=== PATIENT | male | born 1965 | race Caucasian/White ===

== ENCOUNTER 2017-12-20 18:19 | Emergency (ER) | payer SELFPAY ==
[2017-12-20 18:20] VITALS: BP 156/98; PULSE 112; RESP 14; TEMP 37.1; O2SAT 94
[2017-12-20 18:46] VITALS: O2SAT 95
[2017-12-20 18:47] VITALS: BP 151/97; PULSE 105; PULSE 106; RESP 14; O2SAT 94
[2017-12-20 18:50] VITALS: PULSE 109; RESP 26; O2SAT 94
--- NOTE | 2017-12-20 18:55 | W.ED.GENAD ---
Discharge Plan Discharge Details Chief Complaint: Allergic Clinical Impression: Bee sting Reason For Visit: bee sting Primary Care Provider: Carola Jain ED Provider: Koffi Chase Disposition Patient Disposition: HOME Condition: Stable Home Meds and New Rx's Prescriptions: New epinephrine 0.3 mg/0.3 mL auto-injector 0.3 mg IM ONCE Qty: 1 RF: 0 prednisone 20 mg tablet 60 mg PO DAILY 4 Days Qty: 12 RF: 0 Continue meloxicam 7.5 MG tablet 15 mg PO DAILY RF: 0 sumatriptan succinate [Imitrex] 50 MG tablet 50 mg PO DAILY RF: 0 simvastatin 40 MG tablet 40 mg PO DAILY RF: 0 epinephrine 0.3 MG/SYR auto-injector 0.3 mg IJ PRN PRNRF: 0 cholecalciferol (vitamin D3) [Vitamin D3] 2,000 UNIT capsule 2,000 unit PO DAILY RF: 0 Discharge Instructions Additional Instructions: IF you start to have a rash with difficulty breathing, throat swelling, severe abdominal pain or persistent vomit return to the emergency department after using your epi pen IF you have itching you can take over the counter benadryl, follow dosing instructions on packaging Discharge Data Discharge Physician: Koffi Chase Medical Decision Making MDM Narrative Medical decision making narrative: PT here who states 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 HE denies any respiratory or gi symptoms and other than mild discomfort where he was stung is asymptomatic. Do not feel epi indicated, will start steroids and monitor pt remains without symptoms. Will start short course of steroids and he is not sure if he has epi pen at home or not so will represcribe this for him. Return precautions given Differential Diagnosis allergic reaction, bee sting HPI - General Adult General Mode of arrival: ambulatory. Date/Time Provider Initiated Documentation: 12/20/17 18:52. Limitations to Documentation: no limitations. Information obtained by: patient. History of Present Illness 51 year old M presents to the emergency department with the chief complaint of stung by yellow jacket in left calf, described as mild, with intensity rated at 2. Quality is described as aching, and is localized to the lower extremity. Patient reports no radiation. Patient started experiencing this hour(s) (3) and it has been constant. No relieving factors improve symptom(s), No exacerbating factors reported . Patient notes no other symptoms.. Patient did receive the following treatments prior to arrival, none Related Data Home Medications Medication Instructions Recorded Confirmed cholecalciferol (vitamin D3) 2,000 unit PO DAILY 03/26/15 12/20/17 [Vitamin D3] epinephrine 0.3 mg IJ PRN PRN 03/26/15 04/24/17 simvastatin 40 mg PO DAILY 03/26/15 12/20/17 sumatriptan succinate [Imitrex] 50 mg PO DAILY 03/26/15 12/20/17 meloxicam 15 mg PO DAILY tab-cap 04/24/15 12/20/17 Previous Rx's Medication Instructions Recorded epinephrine 0.3 mg IM ONCE #1 each 12/20/17 prednisone 60 mg PO DAILY 4 Days #12 tab 12/20/17 Allergies Allergy/AdvReac Type Severity Reaction Status Date / Time sesame seed Allergy Severe Hives,BREATHING Unverified 12/20/17 19:00 PROBLEMS venom-honey bee Allergy Unverified 12/20/17 19:00 [bee venom (honey bee)] TERIYAKI SAUCE Allergy Hives Uncoded 12/20/17 19:00 General Stated Complaint: Allergic BART: 2 Review of Systems Review of Systems All systems reviewed & are unremarkable except as noted in HPI and below Constitutional Denies chills, Denies fever(s) and Denies weakness Eyes Patient Denies loss of vision ENT Denies change in voice Cardiovascular Denies chest pain and Denies dyspnea Respiratory Denies dyspnea Gastrointestinal Denies abdominal pain, Denies nausea and Denies vomiting Genitourinary Denies dysuria Musculoskeletal Denies joint swelling Integumentary/Breasts Denies rash Neurologic Denies loss of vision and Denies weakness Psychiatric Denies depression Endocrine Denies cold intolerance and Denies heat intolerance Allergic/Immunologic Denies urticaria PFSH Medical History Hyperlipidemia Migraine Social History Smoking/Tobacco Use Status: Former Tobacco Use Exam Const General: no acute distress Orientation: alert HENMT Head: normal to inspection Ears: external ears normal General nose exam: external nose normal Mouth: moist mucous membranes Eyes General: appearance normal, both eyes and all related structures Neck Neck: normal visual inspection Resp Effort & Inspection: normal respiratory effort and able to speak in complete sentences Cardio Rate: regular rate Skin General skin exam: no rashes or lesions noted Neuro General: alert and oriented x3 Extrem General: other (2cm erythema posterior left calf where he was stung by bee, no other rashes) Psych Mental Status: mental status grossly normal Course Vital Signs Temperature 37.1 C 12/20/17 18:20 Pulse 112 H 12/20/17 18:20 Respiratory Rate 14 12/20/17 18:20 Blood Pressure 156/98 H 12/20/17 18:20 Pulse Oximetry 94 L 12/20/17 18:20 Temperature 37.1 C 12/20/17 18:20 Pulse 112 H 12/20/17 18:20 Respiratory Rate 14 12/20/17 18:20 Blood Pressure 156/98 H 12/20/17 18:20 Pulse Oximetry 94 L 12/20/17 18:20
[2017-12-20] MEDS: predniSONE 20 MG TAB 60 MG PO (18:58)
--- NOTE | 2017-12-20 18:59 | ED.GENADUL_ITS ---
Discharge Plan Discharge Details Chief Complaint: Allergic Clinical Impression: Bee sting Reason For Visit: bee sting Primary Care Provider: Carola Jain ED Provider: Kofif Chase Disposition Patient Disposition: HOME Condition: Stable Home Meds and New Rx's Prescriptions: New epinephrine 0.3 mg/0.3 mL auto-injector 0.3 mg IM ONCE Qty: 1 RF: 0 prednisone 20 mg tablet 60 mg PO DAILY 4 Days Qty: 12 RF: 0 Continue meloxicam 7.5 MG tablet 15 mg PO DAILY RF: 0 sumatriptan succinate [Imitrex] 50 MG tablet 50 mg PO DAILY RF: 0 simvastatin 40 MG tablet 40 mg PO DAILY RF: 0 epinephrine 0.3 MG/SYR auto-injector 0.3 mg IJ PRN PRNRF: 0 cholecalciferol (vitamin D3) [Vitamin D3] 2,000 UNIT capsule 2,000 unit PO DAILY RF: 0 Discharge Instructions Additional Instructions: IF you start to have a rash with difficulty breathing, throat swelling, severe abdominal pain or persistent vomit return to the emergency department after using your epi pen IF you have itching you can take over the counter benadryl, follow dosing instructions on packaging Discharge Data Discharge Physician: Koffi Chase Medical Decision Making MDM Narrative Medical decision making narrative: PT here who states 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 HE denies any respiratory or gi symptoms and other than mild discomfort where he was stung is asymptomatic. Do not feel epi indicated, will start steroids and monitor pt remains without symptoms. Will start short course of steroids and he is not sure if he has epi pen at home or not so will represcribe this for him. Return precautions given Differential Diagnosis allergic reaction, bee sting HPI - General Adult General Mode of arrival: ambulatory . Date/Time Provider Initiated Documentation: 12/20/17 18:52 . Limitations to Documentation: no limitations . Information obtained by: patient . History of Present Illness 51 year old M presents to the emergency department with the chief complaint of stung by yellow jacket in left calf, described as mild, with intensity rated at 2. Quality is described as aching, and is localized to the lower extremity. Patient reports no radiation. Patient started experiencing this hour(s) (3) and it has been constant. No relieving factors improve symptom(s ), No exacerbating factors reported . Patient notes no other symptoms.. Patient did receive the following treatments prior to arrival, none Related Data Home Medications Medication Instructions Recorded Confirmed cholecalciferol (vitamin D3) 2,000 unit PO DAILY 03/26/15 12/20/17 [Vitamin D3] epinephrine 0.3 mg IJ PRN PRN 03/26/15 04/24/17 simvastatin 40 mg PO DAILY 03/26/15 12/20/17 sumatriptan succinate [Imitrex] 50 mg PO DAILY 03/26/15 12/20/17 meloxicam 15 mg PO DAILY tab-cap 04/24/15 12/20/17 Previous Rx's Medication Instructions Recorded epinephrine 0.3 mg IM ONCE #1 each 12/20/17 prednisone 60 mg PO DAILY 4 Days #12 tab 12/20/17 Allergies Allergy/AdvReac Type Severity Reaction Status Date / Time sesame seed Allergy Severe Hives,BREATHING Unverified 12/20/17 19:00 PROBLEMS venom-honey bee Allergy Unverified 12/20/17 19:00 [bee venom (honey bee)] TERIYAKI SAUCE Allergy Hives Uncoded 12/20/17 19:00 General Stated Complaint: Allergic BART: 2 Review of Systems Review of Systems All systems reviewed & are unremarkable except as noted in HPI and below Constitutional Denies chills, Denies fever(s) and Denies weakness Eyes Patient Denies loss of vision ENT Denies change in voice Cardiovascular Denies chest pain and Denies dyspnea Respiratory Denies dyspnea Gastrointestinal Denies abdominal pain, Denies nausea and Denies vomiting Genitourinary Denies dysuria Musculoskeletal Denies joint swelling Integumentary/Breasts Denies rash Neurologic Denies loss of vision and Denies weakness Psychiatric Denies depression Endocrine Denies cold intolerance and Denies heat intolerance Allergic/Immunologic Denies urticaria PFSH Medical History Hyperlipidemia Migraine Social History Smoking/Tobacco Use Status: Former Tobacco Use Exam Const General: no acute distress Orientation: alert HENMT Head: normal to inspection Ears: external ears normal General nose exam: external nose normal Mouth: moist mucous membranes Eyes General: appearance normal, both eyes and all related structures Neck Neck: normal visual inspection Resp Effort & Inspection: normal respiratory effort and able to speak in complete sentences Cardio Rate: regular rate Skin General skin exam: no rashes or lesions noted Neuro General: alert and oriented x3 Extrem General: other (2cm erythema posterior left calf where he was stung by bee, no other rashes) Psych Mental Status: mental status grossly normal Course Vital Signs Temperature 37.1 C 12/20/17 18:20 Pulse 112 H 12/20/17 18:20 Respiratory Rate 14 12/20/17 18:20 Blood Pressure 156/98 H 12/20/17 18:20 Pulse Oximetry 94 L 12/20/17 18:20 Temperature 37.1 C 12/20/17 18:20 Pulse 112 H 12/20/17 18:20 Respiratory Rate 14 12/20/17 18:20 Blood Pressure 156/98 H 12/20/17 18:20 Pulse Oximetry 94 L 12/20/17 18:20
[2017-12-20 19:00] VITALS: BP 144/93; PULSE 96; PULSE 97; RESP 18; O2SAT 93
[2017-12-20 19:01] VITALS: PULSE 95; RESP 15; O2SAT 95
== END 2017-12-20 19:41 | disposition home or self-care (01) ==
LOC: ER 19:33
PROVIDERS: Emergency Provider Emergency Medicine; PCP Family Medicine
DX: T63.461A Toxic effect of venom of wasps, accidental (unintentional), initial encounter (principal); Z87.892 Personal history of anaphylaxis; Z91.030 Bee allergy status
CPT/HCPCS: 99283; J7512

== ENCOUNTER 2018-04-24 17:05 | Emergency (ER) | payer OTHER, SELFPAY ==
[2018-04-24 17:10] VITALS: BP 165/95; PULSE 84; RESP 18; TEMP 36.9; O2SAT 100
[2018-04-24] MEDS: HYDROmorphone 4 MG TAB PO ×2 (18:27→19:02)
[2018-04-24] MEDS: Ibuprofen 600 MG TAB PO (18:27)
--- NOTE | 2018-04-24 19:14 | ED.GENADUL_ITS ---
Discharge Plan Disposition Patient Disposition: HOME Condition: Stable Discharge Details Chief Complaint: Orthopedic Clinical Impression: Muscle strain Primary Care Provider: Carola Jain ED Provider: Antonio Anderson Home Meds and New Rx's Prescriptions: New hydromorphone 2 mg tablet 2 - 4 mg PO Q4H PRN (Reason: pain) Qty: 10 RF: 0 No Action meloxicam 7.5 MG tablet 15 mg PO DAILY RF: 0 sumatriptan succinate [Imitrex] 50 MG tablet 50 mg PO DAILY RF: 0 simvastatin 40 MG tablet 40 mg PO DAILY RF: 0 epinephrine 0.3 MG/SYR auto-injector 0.3 mg IJ PRN PRNRF: 0 cholecalciferol (vitamin D3) [Vitamin D3] 2,000 UNIT capsule 2,000 unit PO DAILY RF: 0 epinephrine 0.3 mg/0.3 mL auto-injector 0.3 mg IM ONCE Qty: 1 RF: 0 Discharge Instructions Instructions: Muscle Strain (ED) Additional Instructions: 1. Elevate leg as much as possible. Ice sore areas frequently. Activity as tolerated. 2. Acetaminophen 1000 mg every 4 hours (up to 5 times a day) and/or ibuprofen 600 mg every 6 hours as needed for pain. 3. Hydromorphone 2-4 mg every 4 hours as needed for pain not responding to above medication. Return for worsening pain, leg swelling, fever/chills, or leg numbness. Please return for any concerns. Stand Alone Forms: Work Release Medical Decision Making 52-year-old gentleman who presented for evaluation of left distal lateral thigh pain and tenderness associated with a twisting motion. Denies other injury.. Exam consistent with focal soft tissue tenderness at the distal vastus lateralis. No hip or knee pain with passive or active range of motion. Bedside soft tissue/MSK ultrasound consistent with muscle strain and no evidence of fracture. Discussed clinical and diagnostic findings with patient. Treated in the ED with ibuprofen, hydromorphone, and ice. Discharged home with a limited prescription for hydromorphone and crutches. Advised to refrain from work for the next 2 days with activity as tolerated. Given usual and customary return instructions prior to this charge. Medical Records Medical records reviewed: Yes I reviewed the patient's medical records. Imaging Data Radiologic Study: Attestation: I personally reviewed and interpreted this imaging study as follows: Imaging: Ultrasound (Bedside MSK) My impression: Local hypoechoic fluid collection and tissue disruption at the distal vessels lateral consistent with a muscle strain. No femur fracture appreciated. Images interpreted contemporaneously and independently by myself. Images saved on ultrasound system for review. Lab Data Lab results reviewed: No I reviewed the patient's lab results. 52-year-old gentleman with an unremarkable past medical history who presents with acute left thigh pain. He describes twisting his leg and developing a sudden lateral popping sensation in his distal thigh. He has had no other trauma or injury. His pain remains localized to the lateral thigh and does not radiate proximally or distally. He had no loss of motion or loss sensation. He describes exacerbation of local pain with weightbearing. He denies subjective leg instability, hip pain, or knee pain. HPI General Date/Time Provider Initiated Documentation: 04/24/18 18:05 . Related Data Home Medications Medication Instructions Recorded Confirmed cholecalciferol (vitamin D3) 2,000 unit PO DAILY 03/26/15 04/24/18 [Vitamin D3] epinephrine 0.3 mg IJ PRN PRN 03/26/15 04/24/17 simvastatin 40 mg PO DAILY 03/26/15 04/24/18 sumatriptan succinate [Imitrex] 50 mg PO DAILY 03/26/15 04/24/18 meloxicam 15 mg PO DAILY tab-cap 04/24/15 04/24/18 epinephrine 0.3 mg IM ONCE #1 each 12/20/17 04/24/18 hydromorphone 2 - 4 mg PO Q4H PRN #10 tab 04/24/18 Previous Rx's Medication Instructions Recorded epinephrine 0.3 mg IM ONCE #1 each 12/20/17 hydromorphone 2 - 4 mg PO Q4H PRN #10 tab 04/24/18 Allergies Allergy/AdvReac Type Severity Reaction Status Date / Time sesame seed Allergy Severe Hives,BREATHING Unverified 12/20/17 19:00 PROBLEMS venom-honey bee Allergy Unverified 12/20/17 19:00 [bee venom (honey bee)] TERIYAKI SAUCE Allergy Hives Uncoded 12/20/17 19:00 General Stated Complaint: Orthopedic BART: 3 Review of Systems Constitutional Reports as per HPI, Denies fatigue, Denies fever(s), Denies frequent falls and Denies headache(s) Eyes Denies change in vision and Denies eye discharge ENT Denies dysphagia and Denies headache(s) Cardiovascular Denies chest pain, Denies palpitations and Denies dyspnea Respiratory Denies dyspnea Gastrointestinal Denies abdominal pain, Denies change in bowel habits and Denies dysphagia Musculoskeletal Reports back pain and Denies joint swelling Comments: Left distal lateral thigh pain. No hip or knee pain Neurologic Denies confusion, Denies frequent falls and Denies headache(s) Psychiatric Denies anxiety, Denies change in appetite and Denies confusion Endocrine Denies fatigue and Denies palpitations Hematologic/Lymphatic Denies easy bleeding and Denies easy bruising PFS Social History Smoking/Tobacco Use Status: Former Tobacco Use Exam Const General: healthy appearing and other (Uncomfortable in appearance) Nutritional Appearance: well nourished Orientation: alert and awake HENMT Head: normal to inspection Face and sinus: normal facial exam Mouth: oral mucosae normal Eyes General: appearance normal, both eyes and all related structures Conjunctivae: conjunctivae normal Sclera: sclerae normal Neck Neck: normal visual inspection and full ROM Chest Chest: normal inspection of the chest Resp Effort & Inspection: normal respiratory effort and able to speak in complete sentences Cardio Rate: regular rate Rhythm: regular rhythm Back/Spine/Pelvis Thoracic/Lumbar Spine: thoracic and lumbar spine normal to inspection Skin General skin exam: no rashes or lesions noted Neuro General: alert, awake and moves all extremities Gait: normal gait Extrem General: normal to inspection Left lower extremity: hip/thigh Details: normal to inspection and tenderness (Discussed/); no ecchymosis, no crepitus and no deformity Psych Appearance: grossly normal Mental Status: mental status grossly normal Thought Content: normal Course Vital Signs Temperature 98.4 F 04/24/18 17:10 Pulse 84 04/24/18 17:10 Respiratory Rate 18 04/24/18 17:10 Blood Pressure 165/95 H 04/24/18 17:10 Pulse Oximetry 100 04/24/18 17:10 Temperature 98.4 F 04/24/18 17:10 Temperature Source Temporal Artery Scan 04/24/18 17:10 Pulse 84 04/24/18 17:10 Respiratory Rate 18 04/24/18 17:10 Respiratory Effort 04/24/18 17:13 Blood Pressure 165/95 H 04/24/18 17:10 Blood Pressure Position Sitting 04/24/18 17:10 Pulse Oximetry 100 04/24/18 17:10 Oxygen Delivery Method Room Air 04/24/18 17:10 Oxygen Flow Rate 0 04/24/18 17:10 Pain Level 8 04/24/18 17:10
== END 2018-04-24 19:10 | disposition home or self-care (01) ==
PROVIDERS: Emergency Provider Emergency Medicine; PCP Family Medicine
DX: S76.812A Strain of other specified muscles, fascia and tendons at thigh level, left thigh, initial encounter (principal); X50.9XXA Other and unspecified overexertion or strenuous movements or postures, initial encounter
CPT/HCPCS: 99284; 99283; E0114

== ENCOUNTER 2018-07-29 07:44 | Outpatient (REF) | payer OTHER, SELFPAY ==
[2018-07-29 13:13] LABS: Anion Gap 12.1 mmol/L (3-11); BUN 18 mg/dL (7-18); CO2 24.9 mmol/L (21.0-32.0); Calcium 8.8 mg/dL (8.5-10.1); Chloride 105 mmol/L (98-107); Glucose 102 mg/dL (70-100); Sodium 142 mmol/L (136-145)
[2018-07-29 13:19] LABS: Hemoglobin A1C 6.1 % (4.5-6.2)
== END 2018-07-29 08:04 ==
LOC: NCHCN 07:44
PROVIDERS: PCP Family Medicine; Visit Provider Family Medicine
DX: R73.01 Impaired fasting glucose (principal); Z79.1 Long term (current) use of non-steroidal anti-inflammatories (NSAID)
CPT/HCPCS: 80048; 83036

== ENCOUNTER 2018-10-18 01:16 | Outpatient (CLI) | payer OTHER, SELFPAY ==
--- NOTE | 2018-10-18 09:00 | DIABASSESS_ITS ---
Donald Mackay presents for diabetes prevention support focused on weight loss. Weight today with shoes 206; height 67 inches. His goal weight is 185 pounds. Donald states he has cut back on starch for a year; he no longer has them daily. He believes his problem is that he works at [employer] and has to taste food all day long. He also blames his weight gain on quitting smoking 15 years ago. He starts his morning at 3am. Eats breakfast of cheerios and whole milk or toast with peanut butter at work. Lunch is leftovers or peanut butter jelly sandwich. He has supper when he gets home from work after 3. He had chicken with bbq sauce, tossed salad with [place] dressing. 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 States he is picky about his food. He is active at work all day but does not regular planned additional physical activity. Donald denies stress outside of his weight. INTERVENTION: Reviewed food guide. Discussed mindful eating practices. Discussed needing to change up something in his food and movement regimen. Discussed physical activity impact on diabetes prevention. Discussed types of exercise. PLAN: Donald will increase vegetables at lunch and supper; slow his eating. Donald will begin walking around the park after supper. He knows to call with questions or desire for further follow up. Individual MNT __3__ units billed TIME IN: OUT: No DM group education series being offered at this time.
== END 2018-10-18 01:36 ==
PROVIDERS: PCP Family Medicine; Visit Provider Dietitian, Registered
DX: R73.03 Prediabetes (principal); R63.5 Abnormal weight gain; Z71.3 Dietary counseling and surveillance
CPT/HCPCS: 97802

== ENCOUNTER 2019-02-10 20:54 | Outpatient (REF) | payer OTHER, SELFPAY ==
[2019-02-10 19:35] LABS: HCT 40.9 % (40.0-50.0); HGB 13.4 g/dL (13.5-17.5); Mean Corp. HGB Concentration 32.8 g/dL (32.0-36.0); Mean Corpuscular Hemoglobin 28.5 pg (27.0-33.0); Mean Platelet Volume 10.5 fL (8.0-11.0); Platelet Count 239 x1000/uL (130-400); RBC Distribution Width 14.2 % (11.8-14.1); White Blood Cell Count 8.47 k/cumm (4.4-10.8)
[2019-02-10 19:51] LABS: Anion Gap 10.5 mmol/L (3-11); BUN 17 mg/dL (7-18); CO2 24.5 mmol/L (21.0-32.0); CREATININE 0.91 mg/dL (0.70-1.30); Calcium 8.6 mg/dL (8.5-10.1); Chloride 106 mmol/L (98-107); Glucose 127 mg/dL (70-100); Potassium 3.9 mmol/L (3.5-5.1); Sodium 141 mmol/L (136-145)
[2019-02-10 20:01] LABS: Hemoglobin A1C 5.7 % (4.5-6.2)
== END 2019-02-10 21:14 ==
LOC: NCHCN 20:54
PROVIDERS: PCP Family Medicine; Visit Provider Family Medicine
DX: I10 Essential (primary) hypertension (principal); R73.03 Prediabetes
CPT/HCPCS: 80048; 85027; 83036

== ENCOUNTER 2019-05-25 09:30 | Emergency (ER) | payer OTHER, SELFPAY ==
[2019-05-25 09:34] VITALS: BP 134/88; PULSE 90; RESP 18; TEMP 36.7; O2SAT 96
--- NOTE | 2019-05-25 09:38 | ED.GENADUL_ITS ---
Discharge Plan Disposition Patient Disposition: HOME Condition: Stable Discharge Details Chief Complaint: Orthopedic Clinical Impression: Ingrown right greater toenail Primary Care Provider: Carola Jain ED Provider: Micki Figueroa Home Meds and New Rx's Prescriptions: Continued meloxicam 7.5 MG tablet 15 mg PO DAILY RF: 0 sumatriptan succinate [Imitrex] 50 MG tablet 50 mg PO DAILY RF: 0 simvastatin 40 MG tablet 40 mg PO DAILY RF: 0 epinephrine 0.3 MG/SYR auto-injector 0.3 mg IJ PRN PRNRF: 0 cholecalciferol (vitamin D3) [Vitamin D3] 2,000 UNIT capsule 2,000 unit PO DAILY RF: 0 epinephrine 0.3 mg/0.3 mL auto-injector 0.3 mg IM ONCE Qty: 1 RF: 0 hydromorphone 2 mg tablet 2 - 4 mg PO Q4H PRN (Reason: pain) Qty: 10 RF: 0 lisinopril 10 mg Tablet 10 mg PO DAILY RF: 0 Discharge Instructions Instructions: Ingrown Nail (ED), Partial Nail Avulsion for Ingrown Nail (GEN) Additional Instructions: Follow up with primary care provider in 3-5 days. Return to ED sooner if any worsening or concerns. Follow-up with podiatry. Keep toe clean and dry. Only use bacitracin ointment for first couple of days and allow toe to dry out completely to air. No soaking. Return to the ED for any red streaks, worsening swelling, worsening pain or any concerns. Referrals: Carola Jain MD [Primary Care Provider] - Prasad Keys DPM [[facility] STAFF PHYSICIAN] - (Follow up with Podiatry) Discharge Data Discharge Date/Time-TO BE ENTERED AT DEPARTURE: 05/25/19 10:22 Medical Decision Making Patient is a 53-year-old male presents with right great toe ingrown toenail. Medial aspect of the toe is red and swollen tender. No significant amount of purulent discharge. No red streaks up the toe. Patient verbally agreed to have a digital block and avulsion of medial toenail performed. See procedure note for 3 sided digital block. Used 1% lidocaine and 0.25% bupivacaine. Patient tolerated well. The medial aspect of the nail was avulsed. No complications, no bleeding. Patient is to follow-up with podiatry Dr. cam in 3 to 5 days. Home care instructions given. This text was generated using [employer] dictation system, please disregard any oddities of phrase or misspellings. HPI General Mode of arrival: ambulatory . Date/Time Provider Initiated Documentation: 05/25/19 09:32 . Limitations to Documentation: no limitations . Information obtained by: patient . HPI Narrative: Patient has a right great ingrown toenail. On the medial aspect of the nail is embedded into the skin. There is mild redness surrounding nail bed. No drainage no red streaks no signs of infection. Patient is not a diabetic. Discussed options with patient including calling podiatry to make an appointment today, or avulsing nail and doing a digital block in department. We will call podiatry and if unable to get in today I will do the procedure. Related Data Home Medications Medication Instructions Recorded Confirmed cholecalciferol (vitamin D3) 2,000 unit PO DAILY 03/26/15 05/25/19 [Vitamin D3] epinephrine 0.3 mg IJ PRN PRN 03/26/15 05/25/19 simvastatin 40 mg PO DAILY 03/26/15 05/25/19 sumatriptan succinate [Imitrex] 50 mg PO DAILY 03/26/15 05/25/19 meloxicam 15 mg PO DAILY tab-cap 04/24/15 05/25/19 epinephrine 0.3 mg IM ONCE #1 each 12/20/17 05/25/19 hydromorphone 2 - 4 mg PO Q4H PRN #10 tab 04/24/18 05/25/19 lisinopril 10 mg PO DAILY 05/25/19 05/25/19 Previous Rx's Medication Instructions Recorded epinephrine 0.3 mg IM ONCE #1 each 12/20/17 hydromorphone 2 - 4 mg PO Q4H PRN #10 tab 04/24/18 Allergies Allergy/AdvReac Type Severity Reaction Status Date / Time sesame seed Allergy Severe Hives,BREATHING Unverified 05/25/19 09:37 PROBLEMS venom-honey bee Allergy Unverified 05/25/19 09:37 [bee venom (honey bee)] TERIYAKI SAUCE Allergy Hives Uncoded 05/25/19 09:37 General Stated Complaint: Orthopedic BART: 4 Review of Systems Narrative: Constitutional: Negative for weight loss, alert and oriented, well groomed, normal body habitus, appears comfortable. HEENT: Denies trauma, headaches, blurry vision, nasal discharge, sore throat, trouble swallowing. Chest: Denies chest pain, palpitations, irregular rhythm, hypertension. Respiratory: Denies Shortness of breath, cough, hemoptysis. GI: Denies abdominal pain, nausea, vomiting, diarrhea, constipation. : Denies dysuria, hematuria, flank pain, vaginal bleeding, rectal bleeding. Neuro: Denies dizziness, blurry vision, weakness, syncope, headache or facial numbness. Hematologic: Denies easy bruising, intolerance to heat or cold, hair loss. Extremities: Right great toe erythema, pain, swelling, ingrown toenail noted. [facility] Medical History Hyperlipidemia Migraine Social History Smoking/Tobacco Use Status: Former Tobacco Use Alcohol Intake: never Drug use: Never Substance use type: does not use Do you feel safe at home: Yes Do you feel safe in your relationship?: Yes Exam Narrative Exam Narrative: Constitutional: Allert and oriented x3. Appears stated age. Normal body habitus. Head: Normocephalic, no trauma. Eyes: Pupils PERRLA, Red reflex noted, EOM's intact. Eyelids symmetrical withour lesions, discharge, or swelling. ENT: Bilateral TM's WNL, External ear normal to inspection, no mastoid TTP, swelling, or erythema, Nasal turbinates WNL, no nasal discharge. Normal dentition, Posterior pharynx WNL, no exudate. Chest: RRR, Normal S1, S2, distal pulses intact. Resp: Lungs clear to auscultation bilaterally, no wheezes, rales, or rhonchi. Musculoskeletal: Normal gait, 5/5 strength to all four extremities. Skin: No suspicious rashes or lesions. Capillary refill less than 2 sec. Neurologic: Cranial nerves II-XII intact. Alert and oriented x 3. DTR's intact. Hematologic/Lymphatic: No ecchymosis, no lymphadenopathy. Extrem Right lower extremity: normal capillary refill and foot (Right great toe ingrown toenail medial aspect.) Details: normal capillary refill, tenderness and no edema; no cyanosis and no edema Course Vital Signs Vital signs: Vital Signs Temperature 36.7 C 05/25/19 09:34 Pulse 90 05/25/19 09:34 Respiratory Rate 18 05/25/19 09:34 Blood Pressure 134/88 05/25/19 09:34 Pulse Oximetry 96 05/25/19 09:34 Temperature 36.7 C 05/25/19 09:34 Temperature Source Skin 05/25/19 09:34 Pulse 90 05/25/19 09:34 Respiratory Rate 18 05/25/19 09:34 Blood Pressure 134/88 05/25/19 09:34 Pulse Oximetry 96 05/25/19 09:34 Oxygen Delivery Method Room Air 05/25/19 09:34 Oxygen Flow Rate 0 05/25/19 09:34 Pain Level 8 05/25/19 09:34 Procedures Nerve Block Nerve Block 1: Time out performed: Yes Local Anesthetic: Lidocaine 1% and Bupivicaine 0.25% Amount of anesthesia used (mL): 4 Side: right (Great toe) Nerve Blocks: digital (3 sided digital block to great toe) Procedure Successful: Yes Patient Tolerated Procedure: well and no complications Complications: none
[2019-05-25] MEDS: Lidocaine 1% Pres-Free 5 ML VIAL IJ (09:46)
[2019-05-25] MEDS: Bupivacaine 0.25% Pres-Free 10 ML VIAL IJ (09:47)
--- NOTE | 2019-05-25 10:21 | NUR.NOTE ---
bactracin and dressing applied to right great toe. area checked by RN brianda, area has brisk cap refill Nursing Note:
== END 2019-05-25 10:22 | disposition home or self-care (01) ==
PROVIDERS: Emergency Provider Registered Nurse Emergency; PCP Family Medicine
DX: L60.0 Ingrowing nail (principal)
CPT/HCPCS: 11750

== ENCOUNTER 2019-08-08 18:46 | Outpatient (REF) | payer OTHER, SELFPAY ==
[2019-08-08 19:04] LABS: Anion Gap 10.4 mmol/L (3-11); BUN 18 mg/dL (7-18); CO2 23.6 mmol/L (21.0-32.0); CREATININE 0.99 mg/dL (0.70-1.30); Calcium 8.6 mg/dL (8.5-10.1); Chloride 107 mmol/L (98-107); Glucose 112 mg/dL (74-106); Potassium 4.1 mmol/L (3.5-5.1); Sodium 141 mmol/L (136-145)
[2019-08-08 19:13] LABS: Hemoglobin A1C 5.9 % (3.8-5.6)
== END 2019-08-08 19:06 ==
LOC: NCHCN 18:46
PROVIDERS: PCP Family Medicine; Visit Provider Family Medicine
DX: I10 Essential (primary) hypertension (principal); R73.03 Prediabetes
CPT/HCPCS: 80048; 83036

== ENCOUNTER 2019-08-17 21:27 | Emergency (ER) | payer OTHER, SELFPAY ==
[2019-08-17 21:36] VITALS: BP 146/84; PULSE 68; RESP 18; TEMP 36.6; O2SAT 99
--- NOTE | 2019-08-17 21:43 | ED.GENADUL_ITS ---
Discharge Plan Disposition Patient Disposition: HOME Condition: Improving Discharge Details Chief Complaint: EarProblem Clinical Impression: Sinus congestion Primary Care Provider: Carola Jain ED Provider: Bud Carrasco Home Meds and New Rx's Prescriptions: New loratadine 10 mg tablet 10 mg PO DAILY Qty: 20 RF: 0 Continued meloxicam 7.5 MG tablet 15 mg PO DAILY RF: 0 sumatriptan succinate [Imitrex] 50 MG tablet 50 mg PO DAILY RF: 0 simvastatin 40 MG tablet 40 mg PO DAILY RF: 0 epinephrine 0.3 MG/SYR auto-injector 0.3 mg IJ PRN PRNRF: 0 cholecalciferol (vitamin D3) [Vitamin D3] 2,000 UNIT capsule 2,000 unit PO DAILY RF: 0 epinephrine 0.3 mg/0.3 mL auto-injector 0.3 mg IM ONCE Qty: 1 RF: 0 hydromorphone 2 mg tablet 2 - 4 mg PO Q4H PRN (Reason: pain) Qty: 10 RF: 0 lisinopril 10 mg Tablet 10 mg PO DAILY RF: 0 Discharge Instructions Additional Instructions: Home to rest today. Please take loratadine as prescribed. Continue your regular medications. Follow-up with regular doctor if not improving in 7 to 10 days time. Return develop a fever, headache, or any other acute concerns. Medical Decision Making 53-year-old male presents with bilateral ear pain with onset today. He denies any other illness, he is not had sinus pressure, drainage, tooth pain or intraoral swelling. His vital signs are unremarkable, exam reassuring but does reveal distended tympanic membranes bilaterally. Most likely mild seasonal allergy and congestion. Will trial a course of Claritin. He stable for outpatient management and understands return precautions. HPI General Mode of arrival: ambulatory . Date/Time Provider Initiated Documentation: 08/17/19 21:29 . Limitations to Documentation: no limitations . Information obtained by: patient . History of Present Illness 53 year old M presents to the emergency department with the chief complaint of Bilateral ear pain today, no fever, cough, other illness. Denies headache., described as mild, Quality is described as dull and constant, and is localized to the head, left and right. Patient reports no radiation. Patient started experiencing this hour(s) and it has been constant. No relieving factors improve symptom(s), No exacerbating factors reported . Patient notes denies cough, diaphoresis, fever/chills, headaches and nausea/vomiting. Patient did receive the following treatments prior to arrival, none Related Data Home Medications Medication Instructions Recorded Confirmed cholecalciferol (vitamin D3) 2,000 unit PO DAILY 03/26/15 05/25/19 [Vitamin D3] epinephrine 0.3 mg IJ PRN PRN 03/26/15 05/25/19 simvastatin 40 mg PO DAILY 03/26/15 05/25/19 sumatriptan succinate [Imitrex] 50 mg PO DAILY 03/26/15 05/25/19 meloxicam 15 mg PO DAILY tab-cap 04/24/15 05/25/19 epinephrine 0.3 mg IM ONCE #1 each 12/20/17 05/25/19 hydromorphone 2 - 4 mg PO Q4H PRN #10 tab 04/24/18 05/25/19 lisinopril 10 mg PO DAILY 05/25/19 05/25/19 loratadine 10 mg PO DAILY #20 tab 08/17/19 Previous Rx's Medication Instructions Recorded epinephrine 0.3 mg IM ONCE #1 each 12/20/17 hydromorphone 2 - 4 mg PO Q4H PRN #10 tab 04/24/18 loratadine 10 mg PO DAILY #20 tab 08/17/19 Allergies Allergy/AdvReac Type Severity Reaction Status Date / Time sesame seed Allergy Severe Hives,BREATHING Unverified 08/17/19 21:40 PROBLEMS venom-honey bee Allergy Unverified 08/17/19 21:40 [bee venom (honey bee)] TERIYAKI SAUCE Allergy Hives Uncoded 08/17/19 21:40 General Stated Complaint: EarProblem BART: 4 Review of Systems Narrative: 4 systems reviewed and otherwise negative [facility] Medical History Hyperlipidemia Migraine Social History Smoking/Tobacco Use Status: Former Tobacco Use Alcohol Intake: never Drug use: Never Substance use type: does not use Do you feel safe at home: Yes Do you feel safe in your relationship?: Yes Exam Narrative Exam Narrative: GEN: awake, alert, oriented 3. Pleasant, well groomed, interactive. HEAD: Normocephalic, atraumatic ENT: Mucous membranes moist, oropharynx unremarkable but note of partially edentulous, tympanic membranes distended bilaterally but not erythematous, external ear exam unremarkable EYES: PERRL, EOMI NECK: Full ROM, no GILMAR, no menigismus CHEST/RESP: Nontender, clear to auscultation bilateral, no wheeze/rhonchi/rales CARDIOVASCULAR: RRR, no murmur, rub citlalli. 2+ Rad pulse bilateral ABDOMEN: Soft, nontender, no mass. +Bowel sounds EXT: Full ROM, no edema, no rash Neuro: Grossly normal neurologic exam, conversant, interactive. Psych: Speech fluent, thoughts congruent, affect normal Course Vital Signs Vital signs: Vital Signs Temperature 36.6 C 08/17/19 21:36 Pulse 68 08/17/19 21:36 Respiratory Rate 18 08/17/19 21:36 Blood Pressure 146/84 H 08/17/19 21:36 Pulse Oximetry 99 08/17/19 21:36 Temperature 36.6 C 08/17/19 21:36 Temperature Source Oral 08/17/19 21:36 Pulse 68 08/17/19 21:36 Respiratory Rate 18 08/17/19 21:36 Blood Pressure 146/84 H 08/17/19 21:36 Blood Pressure Position Sitting 08/17/19 21:36 Pulse Oximetry 99 08/17/19 21:36 Oxygen Delivery Method Room Air 08/17/19 21:36 Oxygen Flow Rate 0 08/17/19 21:36
[2019-08-17] MEDS: Loratidine 10 MG TAB PO (21:47)
== END 2019-08-17 21:55 | disposition home or self-care (01) ==
LOC: ER 21:48
PROVIDERS: Emergency Provider Emergency Medicine; PCP Family Medicine
DX: R09.81 Nasal congestion (principal)
CPT/HCPCS: 99283

== ENCOUNTER 2020-02-01 01:46 | Outpatient (CLI) | payer OTHER, SELFPAY ==
--- NOTE | 2020-02-01 09:49 | DI.RAD_ITS ---
EXAM: XR SHOULDER LT COMPLETE 2+V CLINICAL HISTORY: LT SHOULDER PAIN,M25.512,IMPINGEMENT. TECHNIQUE: 2D digital imaging was performed. COMPARISON: No exams were available for comparison FINDINGS: BONES: No acute fracture is present. No bony destructive lesion is seen. JOINTS: No dislocation present. SOFT TISSUE: Normal. IMPRESSION: Unremarkable radiographs of the left shoulder. DATA REPOSITORY: RADIATION DOSE DELIVERED:
== END 2020-02-01 02:06 ==
PROVIDERS: PCP Family Medicine; Visit Provider Physician Assistant
DX: M25.512 Pain in left shoulder (principal)
CPT/HCPCS: 73030

== ENCOUNTER 2020-02-09 03:11 | Outpatient (CLI) | payer OTHER, SELFPAY ==
--- NOTE | 2020-02-09 08:35 | DI.MRI_ITS ---
EXAM: MR UPPER JOINT LT WO CLINICAL HISTORY: LT SHOULDER PAIN,M25.512. TECHNIQUE: Multiplanar multisequence MRI was performed. CONTRAST MATERIAL: IV Contrast: mL of Dotarem contrast administered. COMPARISON: Plain films dated 01 February 2020. FINDINGS: Bones: There is no fracture or contusion pattern. AC joint shows mild spurring. There is some fluid in the AC joint. There may be minimal impingement on the supraspinatus muscle. There is a minimal amount o f fluid in the subacromial subdeltoid bursa and subcoracoid bursa. No glenohumeral joint effusion is seen.. Rotator Cuff: The supra and infraspinatus are intact. The subscapularis and teres minor are normal. No muscle atrop hy is seen. Labrum and biceps anchor: The biceps tendon is located. The anchor is well maintained. No gross labral defects are identified. There is mild spurring at the glenoid.. IMPRESSION: AC joint degenerative changes. Mild sub acromial subdeltoid bursitis. DATA REPOSITORY:
== END 2020-02-09 03:31 ==
PROVIDERS: PCP Family Medicine; Visit Provider Physician Assistant
DX: M19.012 Primary osteoarthritis, left shoulder (principal)
CPT/HCPCS: 73221

== ENCOUNTER 2020-08-16 14:08 | Emergency (ER) | payer OTHER, SELFPAY ==
[2020-08-16 14:16] VITALS: BP 151/87; PULSE 76; RESP 20; TEMP 36.2; O2SAT 96
--- NOTE | 2020-08-16 14:23 | W.ED.GENAD ---
Discharge Plan Disposition Patient Disposition: HOME Condition: Stable Discharge Details Clinical Impression: Acute otitis externa of left ear Primary Care Provider: Carola Jain ED Provider: Micki Figueroa Home Meds and New Rx's Prescriptions: New [id number]-[id number]-AK 3.5-10,000-1 mg/mL-unit/mL-% drops,suspension 4 drp otic (ear) Q8H 7 Days Qty: 10 RF: 0 ciprofloxacin HCl 500 mg tablet 500 mg PO BID 7 Days Qty: 14 RF: 0 No Action meloxicam 7.5 MG tablet 15 mg PO DAILY RF: 0 nabumetone 750 mg tablet 750 mg PO DAILY RF: 0 triamcinolone acetonide 0.1 % cream 1 applic topical BID RF: 0 lisinopril 10 mg tablet 5 mg PO DAILY RF: 0 sumatriptan succinate [Imitrex] 50 MG tablet 50 mg PO DAILY RF: 0 simvastatin 40 MG tablet 40 mg PO DAILY RF: 0 epinephrine 0.3 MG/SYR auto-injector 0.3 mg IJ PRN PRNRF: 0 cholecalciferol (vitamin D3) [Vitamin D3] 2,000 UNIT capsule 2,000 unit PO DAILY RF: 0 loratadine 10 mg tablet 10 mg PO DAILY Qty: 20 RF: 0 hydromorphone 2 mg tablet 2 - 4 mg PO Q4H PRN (Reason: pain) Qty: 10 RF: 0 Discharge Instructions Instructions: Otitis Externa (ED) Additional Instructions: Apply topical Neosporin or bacitracin ointment to the open areas of the ear. Use the eardrops as directed 4 drops 3 times a day for the next 7 to 10 days. Take the oral antibiotics twice daily for the next 7 days. No soaking or swimming. Keep clean and dry. Follow up with primary care provider in 3-5 days. Return to ED sooner if any worsening or concerns. Increase oral fluids. Please take Tylenol or Ibuprofen with food every 4-6 hours as needed for pain and swelling. Referrals: Carola Jain MD [Primary Care Provider] - Discharge Data Discharge Date/Time-TO BE ENTERED AT DEPARTURE: 08/16/20 14:26 Medical Decision Making 54-year-old male presents to the ER with chief complaint of left ear pain which began approximately 2 days ago. Patient denies any injury to the ear, no known insect bite. He does have swelling noted to the external ear, there is couple areas of break in the skin with some crusty sanguinous drainage noted. Internal ear canal slightly erythemic, tympanic membrane is nonerythemic nonbulging. He denies any throat pain or trouble swallowing no mastoid tenderness with palpation, he denies any fever or chills. Will place patient on polymyxin neomycin hydrocortisone drops x7 to 10 days and oral ciprofloxacin twice daily for 7 days for otitis externa. Instructed to follow-up with PCP and/or return to the ED for any worsening, fever or any concerns. HPI General Mode of arrival: ambulatory. Date/Time Provider Initiated Documentation: 08/16/20 14:12. Limitations to Documentation: no limitations. Information obtained by: patient. HPI Narrative: 54-year-old male presents to the ER with chief complaint of left ear pain which began approximately 2 days ago. Patient denies any injury to the ear, no known insect bite. He does have swelling noted to the external ear, there is couple areas of break in the skin with some crusty sanguinous drainage noted. Internal ear canal slightly erythemic, tympanic membrane is nonerythemic nonbulging. He denies any throat pain or trouble swallowing no mastoid tenderness with palpation, he denies any fever or chills. Related Data Home Medications Medication Instructions Recorded Confirmed cholecalciferol (vitamin D3) 2,000 unit PO DAILY 03/26/15 08/16/20 [Vitamin D3] epinephrine 0.3 mg IJ PRN PRN 03/26/15 08/16/20 simvastatin 40 mg PO DAILY 03/26/15 08/16/20 sumatriptan succinate [Imitrex] 50 mg PO DAILY 03/26/15 08/16/20 meloxicam 15 mg PO DAILY tab-cap 04/24/15 08/16/20 hydromorphone 2 - 4 mg PO Q4H PRN #10 tab 04/24/18 08/16/20 loratadine 10 mg PO DAILY #20 tab 08/17/19 08/16/20 lisinopril 10 mg tablet 5 mg PO DAILY tab 02/22/20 08/16/20 nabumetone 750 mg tablet 750 mg PO DAILY tab 02/22/20 08/16/20 triamcinolone acetonide 0.1 % 1 applic TOPICAL BID 02/22/20 08/16/20 topical cream ciprofloxacin HCl 500 mg PO BID 7 Days #14 tab 08/16/20 [id number] 4 drp OTIC (EAR) Q8H 7 Days #10 ml 08/16/20 Previous Rx's Medication Instructions Recorded hydromorphone 2 - 4 mg PO Q4H PRN #10 tab 04/24/18 loratadine 10 mg PO DAILY #20 tab 08/17/19 ciprofloxacin HCl 500 mg PO BID 7 Days #14 tab 08/16/20 [id number] 4 drp OTIC (EAR) Q8H 7 Days #10 ml 08/16/20 Allergies Allergy/AdvReac Type Severity Reaction Status Date / Time sesame seed Allergy Severe Hives,BREATHING Unverified 08/16/20 14:17 PROBLEMS venom-honey bee Allergy Unverified 08/16/20 14:17 [bee venom (honey bee)] TERIYAKI SAUCE Allergy Hives Uncoded 08/16/20 14:17 General Stated Complaint: EarProblem BART: 4 Review of Systems All systems reviewed & are unremarkable except as noted in HPI and below ENT Ears, Nose, Mouth, and Throat: Reports as per HPI, Denies dysphagia, Denies dizziness, Reports otalgia, Denies epistaxis, Denies mouth pain, Denies neck pain, Denies odynophagia, Denies sinus pain and Denies sinus pressure Gastrointestinal Gastrointestinal: Denies dysphagia and Denies odynophagia Musculoskeletal Musculoskeletal: Denies neck pain Neurologic Neurologic: Denies dizziness [facility] Medical History Cervical stenosis of spine Chronic low back pain Eczema H/O tobacco use, presenting hazards to health Hand muscle weakness Hyperlipidemia Hypertension, essential, benign Left carpal tunnel syndrome care home (current) use of non-steroidal anti-inflammatories (nsaid) Migraine Obesity Pain in left shoulder Plantar fasciitis, bilateral Prediabetes Preventative health care Social History Smoking/Tobacco Use Status: Former Tobacco Use Smoking risk assessment performed?: Yes Alcohol Intake: never Drug use: Never Substance use type: does not use Household members: none Housing: other Details: mobile home Number of Children: 2 current occupation: [employer] Pets and animals: Yes Pets and animals: cat(s) What type of physical activity do you participate in: walking Seatbelt use: always Do you feel safe at home: Yes Do you feel safe in your relationship?: Yes Exam HENHI Head: normal to inspection and normocephalic Ears: TM normal on the right, TM normal on the left, mastoids normal, no periauricular adenopathy and external ear abnormal pain with movement of external ear and other (Swelling, drainage external ear) Outer ear/TM images: 1. Small break in skin with small amount yellow, crusty sanguinous drainage 2. Swelling Face and sinus: normal facial exam, sinuses nontender and face symmetric Course Vital Signs Vital signs: Vital Signs Temperature 36.2 C L 08/16/20 14:16 Pulse 76 08/16/20 14:16 Respiratory Rate 20 08/16/20 14:16 Blood Pressure 151/87 H 08/16/20 14:16 Pulse Oximetry 96 08/16/20 14:16 Temperature 36.2 C L 08/16/20 14:16 Pulse 76 08/16/20 14:16 Respiratory Rate 20 08/16/20 14:16 Respiratory Effort Non-Labored 08/16/20 14:18 Blood Pressure 151/87 H 08/16/20 14:16 Blood Pressure Position Sitting 08/16/20 14:16 Pulse Oximetry 96 08/16/20 14:16 Oxygen Delivery Method Room Air 08/16/20 14:16 Oxygen Flow Rate 0 08/16/20 14:16 Pain Level 7 08/16/20 14:16
[2020-08-16 14:25] VITALS: BP 151/87; PULSE 76; RESP 20; TEMP 36.2; O2SAT 96
== END 2020-08-16 14:26 | disposition home or self-care (01) ==
LOC: ER 14:25
PROVIDERS: Emergency Provider Registered Nurse Emergency; PCP Family Medicine
DX: H60.392 Other infective otitis externa, left ear (principal)
CPT/HCPCS: 99283

== ENCOUNTER 2021-03-26 15:28 | Outpatient (REF) | payer OTHER, SELFPAY ==
[2021-03-28 11:23] LABS: COVID-19 RT-PCR UVMMC Result Negative (Negative)
== END 2021-03-26 15:29 | disposition home or self-care (01) ==
LOC: LBN 15:28
PROVIDERS: PCP Family Medicine; Visit Provider Nurse Practitioner Family
DX: Z20.822 Contact with and (suspected) exposure to COVID-19 (principal)
CPT/HCPCS: U0003

== ENCOUNTER 2021-03-31 17:40 | Outpatient (REF) | payer OTHER, SELFPAY ==
[2021-03-31 21:47] LABS: Hemoglobin A1C 6.4 % (<5.7)
[2021-03-31 21:49] LABS: ALT 59 U/L (16-63); AST 27 U/L (15-37); Albumin 3.9 g/dL (3.4-5.0); Alkaline Phosphatase 83 U/L (46-116); Anion Gap 10.8 mmol/L (3-11); BUN 19 mg/dL (7-18); Bilirubin, Total 0.3 mg/dL (0.2-1.0); CO2 24.2 mmol/L (21.0-32.0); Calcium 8.7 mg/dL (8.5-10.1); Chloride 103 mmol/L (98-107); Glucose 116 mg/dL (74-106); Potassium 3.8 mmol/L (3.5-5.1); Sodium 138 mmol/L (136-145); Total Protein 7.6 g/dL (6.4-8.2)
[2021-04-02 10:05] LABS: HIV-1/2 Ag & Ab Screen Negative (Negative)
[2021-04-02 10:12] LABS: Hepatitis C Ab w Rflx HCV PCR Negative (Negative)
== END 2021-03-31 17:41 | disposition home or self-care (01) ==
LOC: NCHCN 17:40
PROVIDERS: PCP Family Medicine; Visit Provider Family Medicine
DX: Z00.00 Encounter for general adult medical examination without abnormal findings (principal); I10 Essential (primary) hypertension; R73.03 Prediabetes; M62.81 Muscle weakness (generalized); Z11.4 Encounter for screening for human immunodeficiency virus [HIV]; Z11.59 Encounter for screening for other viral diseases
CPT/HCPCS: 80053; 86803; 87389; 83036

== ENCOUNTER 2021-09-09 19:19 | Outpatient (REF) | payer BC, SELFPAY ==
[2021-09-09 19:33] LABS: Hemoglobin A1C 6.2 % (<5.7)
[2021-09-09 19:42] LABS: BUN 16 mg/dL (7-18); Calcium 8.3 mg/dL (8.5-10.1); Calculated LDL 128 mg/dL (<100); Chloride 108 mmol/L (98-107); Cholesterol 218 mg/dL (<200); Glucose 112 mg/dL (74-106); HDL Cholesterol 52 mg/dL (40-60); Sodium 144 mmol/L (136-145); TSH (W/Ref FT4) 1.38 uIU/mL (0.36-3.74); Triglyceride 194 mg/dL (<150)
== END 2021-09-09 19:20 | disposition home or self-care (01) ==
LOC: NCHCN 19:19
PROVIDERS: PCP Family Medicine; Visit Provider Family Medicine
DX: I10 Essential (primary) hypertension (principal); R73.03 Prediabetes; E66.9 Obesity, unspecified
CPT/HCPCS: 80048; 80061; 83036; 84443

== ENCOUNTER 2023-05-08 20:51 | Emergency (ER) | payer SELFPAY ==
[2023-05-08 20:57] VITALS: BP 144/77; PULSE 81; RESP 16; TEMP 36.3; O2SAT 95
--- NOTE | 2023-05-08 21:04 | ED.GENADUL_ITS ---
HPI General Date/Time Provider Initiated Documentation: 05/08/23 21:02 . HPI Narrative: 57 year-old male presents to ED today by POV/ambulating with a chief complaint of R sided lower abdominal discomfort, urinary frequency with onset since . Quality described as generalized discomfort, aching, denies burning sensation with urination, no radiation to flank pain, fever, discharge, severe testicular pain, nausea, vomiting. Severity is described as 4-5/10. Palliating factors include nothing specific attempted. Provoking factors include nothing specific. Events leading up to the incident/Associated Symptoms: Patient denies history of kidney stones. Patient not anticoagulated. Related Data Home Medications Medication Instructions Recorded Confirmed cholecalciferol (vitamin D3) 50 2,000 unit PO DAILY 03/26/15 05/08/23 mcg (2,000 unit) capsule (Vitamin D3) epinephrine 0.3 mg/0.3 mL 0.3 mg IJ PRN PRN 03/26/15 05/08/23 injection, auto-injector simvastatin 40 mg tablet 40 mg PO DAILY 03/26/15 05/08/23 sumatriptan succinate 50 mg tablet 50 mg PO DAILY 03/26/15 05/08/23 (Imitrex) meloxicam 7.5 mg tablet 15 mg PO DAILY 04/24/15 05/08/23 hydromorphone 2 mg tablet 2 - 4 mg (1 - 2 x 2 mg) PO Q4H PRN 04/24/18 05/08/23 pain #10 tabs loratadine 10 mg tablet 10 mg PO DAILY #20 tabs 08/17/19 05/08/23 lisinopril 10 mg tablet 5 mg PO DAILY 02/22/20 05/08/23 nabumetone 750 mg tablet 750 mg PO DAILY 02/22/20 05/08/23 triamcinolone acetonide 0.1 % 1 applic topical BID 02/22/20 05/08/23 topical cream Previous Rx's Medication Instructions Recorded hydromorphone 2 mg tablet 2 - 4 mg (1 - 2 x 2 mg) PO Q4H PRN 04/24/18 pain #10 tabs loratadine 10 mg tablet 10 mg PO DAILY #20 tabs 08/17/19 Allergies Allergy/AdvReac Type Severity Reaction Status Date / Time sesame seed Allergy Severe Hives,BREATHING Unverified 05/08/23 21:02 PROBLEMS venom-honey bee Allergy Unverified 05/08/23 21:02 [bee venom (honey bee)] TERIYAKI SAUCE Allergy Hives Uncoded 05/08/23 21:02 General Stated Complaint: Abd Prob BART: 3 Review of Systems All systems reviewed & are unremarkable except as noted in HPI and below Exam Narrative Exam Narrative: GENERAL APPEARANCE: Well-nourished, non-toxic, awake and alert, atraumatic, no acute distress. SKIN: Warm, pink, dry, intact, without rashes/lesions/ulcerations. HEAD: Normocephalic, atraumatic, normal hair distribution for gender/age. EYES: Pupils PERRLA, EOMs intact without nystagmus, normal conjunctiva, no exudates on lids/lashes. ENT: Nares patent, no circumoral cyanosis, no facial swelling NECK: Supple, trachea midline, painless cervical ROM. LUNGS/CHEST: Lungs CTA bilaterally- no rhonchi/rales/wheezes diffusely, non- labored respirations, normal A/P diameter, symmetrical expansion, no chest wall deformity HEART (CV/PV): Regular rate and rhythm without murmur, no peripheral edema, no JVD. ABDOMEN: Soft, non-distended, no guarding, mild R suprapubic discomfort without Rovsing's, rebound tenderness, neg Macario's sign, no CVA tenderness to percussion bilaterally MSK: Normal ROM, no swelling/deformity to bilateral UEs or LEs, moving all e xtremities without weakness, no cyanosis, spine midline without tenderness, normal curvature. NEURO: Mental Status AAOx4 - alert to person, place, time, events No facial droop, no forehead involvement. Motor: No focal weakness - strength 5/5 in bilateral UEs and LEs, proximal and distal, symmetric. Sensory: sensation intact to light touch globally. Gait normal: patient ambulated without ataxia into ED room. PSYCH: euthymic, cooperative, pleasant, appropriate speech Course Vital Signs Vital signs: Vital Signs Temperature 36.3 C L 05/08/23 20:57 Pulse 81 05/08/23 20:57 Respiratory Rate 16 05/08/23 20:57 Blood Pressure 144/77 H 05/08/23 20:57 Pulse Oximetry 95 05/08/23 20:57 Temperature 36.3 C L 05/08/23 20:57 Temperature Source Skin 05/08/23 20:57 Pulse 81 05/08/23 20:57 Respiratory Rate 16 05/08/23 20:57 Respiratory Effort Normal, Non-Labored 05/08/23 21:03 Blood Pressure 144/77 H 05/08/23 20:57 Blood Pressure Position Sitting 05/08/23 20:57 Pulse Oximetry 95 05/08/23 20:57 Oxygen Delivery Method Room Air 05/08/23 20:57 Oxygen Flow Rate 0 05/08/23 20:57 Pain Level 6 05/08/23 20:57 Medical Decision Making This dictation utilizes [id number] dictation software and may contain unedited grammatical errors. 57 y/o M presents to ED today with a chief complaint of urinary frequency for the past few days, with some R sided lower abdominal discomfort, denies dysuria, fever, flank pain, nausea, testicular pain. Patient has no known history of renal stones, is monogamous with . Patients' medical history: prediabetes, obesity, hypertension. Family and social history: noncontributory. Pertinent exam findings / vital signs include ABDOMEN: Soft, non-distended, no guarding, mild R suprapubic discomfort without Rovsing's, rebound tenderness, neg Macario's sign, no CVA tenderness to percussion bilaterally. Differential / pathologies of concern include UTI, Renal Stone, NOT Appendicitis. Diagnostic studies of: -CBC, CMP, UA. -UA shows some ketones, no protein or hematuria -CBC benign -CMP benign, no XANDER Interventions of: -recommend AZO, hydration. ED Course/Assessment/Plan: 57-year-old male presents with urinary frequency and some right lower abdominal discomfort, his urine is benign as well as CBC and CMP and his exam is nonperitoneal, I do suspect that he could be having some mechanical irritation of the urethra-itis versus possible passed renal stone, I counseled him on taking outpatient ultrasound as his exam was quite benign I do not think CT is warranted at this time, he has no evidence of urinary obstruction. Findings not consistent with urinary obstruction, infected kidney stone, severe UTI, STI. Disposition of Urinary Frequency. Patient verbalized understanding of the plan and return to ED criteria and engaged in shared decision making. Medical Records Medical records reviewed: Yes I reviewed the patient's medical records. Lab Data Lab results reviewed: Yes I reviewed the patient's lab results. Labs: Laboratory Tests Range/Units 05/08/23 05/08/23 21:25 22:00 WBC (4.4-10.8) 10^3/uL 7.29 RBC (4.36-5.78) 10^6/uL 5.21 Hgb (13.5-17.5) g/dL 14.8 Hct (40.0-50.0) % 44.4 MCV (80-95) fL 85 MCH (27.0-33.0) pg 28.4 MCHC (32.0-36.0) % 33.3 RDW (11.8-14.1) % 13.8 Plt Count (130-400) 10^3/uL 219 MPV (8.0-11.0) fL 9.8 Immature Gran % 0.3 Neutrophils % 48.8 Lymphocytes % 38.7 Monocytes % 7.4 Eosinophils % 3.4 Basophils % 1.4 Nucleated RBC % (0.0-0.3) % 0.0 Absolute Neutrophils (1.2-6.7) 10^3/uL 3.56 Absolute Lymphocytes (1.2-3.4) 10^3/uL 2.82 Absolute Monocytes (0.1-0.8) 10^3/uL 0.54 Absolute Eosinophils (0.0-0.7) 10^3/uL 0.25 Absolute Basophils (0.0-0.2) 10^3/uL 0.10 Sodium (136-145) mmol/L 140 Potassium (3.5-5.1) mmol/L 3.7 Chloride (98-107) mmol/L 105 Carbon Dioxide (21.0-32.0) mmol/L 26.1 Anion Gap (3-11) mmol/L 8.9 BUN (7-18) mg/dL 19 H Creatinine (0.70-1.30) mg/dL 1.2 Est GFR (CKD-EPI 2020) (mL/min/1.73m2) 70.53 Glucose (74-106) mg/dL 161 H Calcium (8.5-10.1) mg/dL 8.6 Total Bilirubin (0.2-1.0) mg/dL 0.4 AST (15-37) U/L 14 L ALT (16-63) U/L 32 Alkaline Phosphatase (46-116) U/L 82 Total Protein (6.4-8.2) g/dL 7.0 Albumin (3.4-5.0) g/dL 3.4 Urine Color (Yellow) Yellow Urine Clarity (Clear) Clear Urine pH (5-8) 6.5 Ur Specific [place] (1.005-1.025) 1.025 Urine Protein (Negative) mg/dL Negative Urine Ketones (Negative) mg/dL Trace H Urine Blood (Negative) Negative Urine Nitrite (Negative) Negative Urine Bilirubin (Negative) Negative Urine Urobilinogen (Up to 0.2) mg/dL 1.0 H Ur Leukocyte Esterase (Negative) Negative Urine Glucose (Negative) mg/dL Negative Quality:SDOH Health Related Social Needs: No Data to Display PFSH All Active Problems (Updated 05/08/23 @ 22:21 by YAZMIN Bowling) Urinary frequency (Acute) Acute otitis externa of left ear (Acute) Left carpal tunnel syndrome (Acute) Ingrown right greater toenail (Acute) Medical History Cervical stenosis of spine Chronic low back pain Eczema H/O tobacco use, presenting hazards to health Hand muscle weakness Hyperlipidemia Hypertension, essential, benign 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) use of non-steroidal anti-inflammatories (nsaid) Migraine Obesity Pain in left shoulder Plantar fasciitis, bilateral Prediabetes Preventative health care Social History Smoking/Tobacco Use Status: Former Tobacco Use Smoking risk assessment performed?: Yes Alcohol Intake: never Drug use: Never Substance use type: does not use Household members: none Housing: house Number of Children: 2 current occupation: [employer] Pets and animals: Yes Pets and animals: cat(s) What type of physical activity do you participate in: walking Seatbelt use: always Do you feel safe at home: Yes Do you feel safe in your relationship?: Yes Discharge Plan Disposition Patient Disposition: Home Condition: Stable Discharge Details Clinical Impression: Urinary frequency Primary Care Provider: Carola Jain ED Provider: Jose Maria Mccray Home Meds and New Rx's Prescriptions: Continued meloxicam 7.5 MG tablet 15 mg PO DAILY nabumetone 750 mg tablet 750 mg PO DAILY triamcinolone acetonide 0.1 % cream 1 applic topical BID lisinopril 10 mg tablet 5 mg PO DAILY sumatriptan succinate [Imitrex] 50 MG tablet 50 mg PO DAILY simvastatin 40 MG tablet 40 mg PO DAILY epinephrine 0.3 MG/SYR auto-injector 0.3 mg IJ PRN PRN cholecalciferol (vitamin D3) [Vitamin D3] 2,000 UNIT capsule 2,000 unit PO DAILY loratadine 10 mg tablet 10 mg PO DAILY Qty: 20 0RF hydromorphone 2 mg tablet 2 - 4 mg PO Q4H PRN (Reason: pain) Qty: 10 0RF Discharge Instructions Instructions: Dysuria (ED) Additional Instructions: You were seen in the emergency department for your increased urinary frequency since on the right side, your story is consistent with a possible migrating kidney stone without any sign of kidney infection, your lab work is normal and I do not suspect any emergent infection, your urine showed no signs of infection. Please obtain [id number] AZO medicine which will numb the urethra as we discussed. Please stay well-hydrated, I suggest that you call your primary care provider's office on Wednesday morning and see if they can schedule an outpatient ultrasound of the kidneys and possibly bladder. Please return to the ED for any urinary retention, increasing pain or any fever or nausea or weakness. Referrals: Carola Jain MD [Primary Care Provider] - Discharge Data Discharge Date/Time-TO BE ENTERED AT DEPARTURE: 05/08/23 22:25
[2023-05-08 21:31] LABS: Abs Immature Grans 0.02 10^3/uL (0.0-0.06); Absolute Eosinophil Count 0.25 10^3/uL (0.0-0.7); Absolute Lymphocyte Count 2.82 10^3/uL (1.2-3.4); Absolute Monocyte Count 0.54 10^3/uL (0.1-0.8); Absolute Neutrophil Count 3.56 10^3/uL (1.2-6.7); Basophils % 1.4; Eosinophils % 3.4; HCT 44.4 % (40.0-50.0); HGB 14.8 g/dL (13.5-17.5); Immature Grans % 0.3; Lymphocytes % 38.7; MCH 28.4 pg (27.0-33.0); MCHC 33.3 % (32.0-36.0); MCV 85 fL (80-95); MPV 9.8 fL (8.0-11.0); Monocytes % 7.4; Neutrophils % 48.8; Platelet Count 219 10^3/uL (130-400); RBC 5.21 10^6/uL (4.36-5.78); RDW 13.8 % (11.8-14.1); RDW-SD 43.1 fL; WBC 7.29 10^3/uL (4.4-10.8)
[2023-05-08 21:51] LABS: ALT 32 U/L (16-63); AST 14 U/L (15-37); Albumin 3.4 g/dL (3.4-5.0); Alkaline Phosphatase 82 U/L (46-116); Anion Gap 8.9 mmol/L (3-11); BUN 19 mg/dL (7-18); Bilirubin, Total 0.4 mg/dL (0.2-1.0); CO2 26.1 mmol/L (21.0-32.0); CREATININE 1.2 mg/dL (0.70-1.30); Calcium 8.6 mg/dL (8.5-10.1); Chloride 105 mmol/L (98-107); Estimated GFR 70.53 (mL/min/1.73m2); Glucose 161 mg/dL (74-106); Potassium 3.7 mmol/L (3.5-5.1); Sodium 140 mmol/L (136-145)
[2023-05-08 22:14] LABS: Bilirubin Negative (Negative); Blood Negative (Negative); Clarity Clear (Clear); Glucose Negative (Negative); Ketones Trace mg/dL (Negative); Leukocyte Esterase Negative (Negative); Nitrite Negative (Negative); Specific Gravity 1.025 (1.005-1.025); pH 6.5 (5-8)
[2023-05-08 22:19] VITALS: BP 139/62; PULSE 70; RESP 18; O2SAT 95
== END 2023-05-08 22:25 | disposition home or self-care (01) ==
PROVIDERS: Emergency Provider Physician Assistant; PCP Family Medicine
DX: R10.31 Right lower quadrant pain (principal); R35.0 Frequency of micturition; I10 Essential (primary) hypertension; E78.5 Hyperlipidemia, unspecified; Z87.891 Personal history of nicotine dependence
CPT/HCPCS: 80053; 99283; 81003; 85025

== ENCOUNTER 2025-03-21 11:38 | Outpatient (REF) | payer MEDICAID, SELFPAY ==
[2025-03-21 17:21] LABS: Anion Gap 10.5 mmol/L (3-11); BUN 25 mg/dL (9-23); CO2 22.5 mmol/L (20.0-31.0); Calcium 9.2 mg/dL (8.3-10.6); Chloride 108 mmol/L (98-107); Glucose 122 mg/dL (74-106); Potassium 3.8 mmol/L (3.5-5.1); Sodium 141 mmol/L (136-145)
[2025-03-21 17:25] LABS: TSH (W/Ref FT4) 1.12 uIU/mL (0.55-4.78)
== END 2025-03-21 11:39 | disposition home or self-care (01) ==
LOC: NCHCN 11:38
PROVIDERS: PCP Family Medicine; Visit Provider Family Medicine
DX: I10 Essential (primary) hypertension (principal); E11.9 Type 2 diabetes mellitus without complications; Z79.4 Long term (current) use of insulin
CPT/HCPCS: 80048; 82043; 82570; 84443